=== PATIENT | female | born 2000 | race Caucasian/White ===

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

== ENCOUNTER 2018-02-17 09:14 | Emergency (ER) | payer SELFPAY ==
[2018-02-17 09:31] VITALS: BP 121/81; PULSE 96; TEMP 98.3; BMI 27.4
--- NOTE | 2018-02-17 09:31 | PDOC ---
History of Present Illness - General Chief Complaint: Rash Stated Complaint: FINE PIMPLE LIKE RASH TO HANDS FEET AND THIGHES Time Seen by Provider: 02/17/18 09:25 History Source: Patient Exam Limitations: No Limitations - History of Present Illness Initial Comments: 02/17/18 09:26 Ariel is an otherwise healthy 17-year-old female presented to emergency department due to rash. Rash began several days ago. She noticed this erythematous lesions on the mons pubis. No fever, no chills. No drainage. No pustular or vesicular lesions. No fevers no chills. No recent international travel, or travel to the [place]. Patient is sexually active with her boyfriend, denies sexually transmitted disease. Patient denies flaking of thirst of her skin. Denies oral lesions. No prior episodes like this. No history of eczema. No Recent antibiotic use No arthropod bites No new foods, detergent, lotion, soap 02/17/18 09:31 PMH: asthma PSH: denies Meds: denies ALL: NKDA Social: Denies drug use FH: non contributory GENERAL/CONSTITUTIONAL: No: fever, chills, weakness, loss of appetite. HEAD, EYES, EARS, NOSE AND THROAT: No: change in vision, ear pain, discharge, sore throat, throat swelling. CARDIOVASCULAR: No: chest pain, lightheadedness, palpitations, syncope RESPIRATORY: No: cough, shortness of breath, wheezing, hemoptysis, stridor. GASTROINTESTINAL: No: nausea, vomiting, diarrhea, abdominal cramping, rectal bleeding, constipation. GENITOURINARY: No: dysuria, hematuria, frequency, urgency, flank pain. MUSCULOSKELETAL: No: back pain, neck pain, joint pain, muscle swelling or pain SKIN: Yes: rash No: lesions, pallor, rash or easy bruising. NEUROLOGIC: No: headache, vertigo, paresthesias, weakness ENDOCRINE: No: unexplained weight gain or loss HEMATOLOGIC/LYMPHATIC: No: anemia, easy bleeding, swelling nodes. GENERAL: The patient is in no acute distress. HEAD: Normal with no signs of trauma. EYES: PERRLA, EOMI, sclera anicteric, conjunctiva clear. ENT: No oral lesions Moist mucous membranes. NECK: Normal range of motion, supple LUNGS: Breath sounds equal, clear to auscultation bilaterally. No wheezes HEART:Regular rate and rhythm, normal S1 and S2 without murmur, rub or gallop. ABDOMEN: Soft, nontender, normoactive bowel sounds. No guarding, no rebound. No masses palpable. EXTREMITIES: Normal range of motion NEUROLOGICAL: Cranial nerves II through XII grossly intact. Normal speech. No focal neurological deficits. MUSCULOSKELETAL: Back non-tender to palpation SKIN: groin crease and mons pubis, erythematous flat lesions, no pustules, no vesicles, skin dry Left hand - hypothenar eminence 2 flesh clored lesions, macular, no pustular lesions no vesicles One lesion on proximal medial ankle No signs of cellulitis 02/17/18 09:52 Past History - Past Medical History Allergies/Adverse Reactions: Allergies Allergy/AdvReac Type Severity Reaction Status Date / Time No Known Allergies Allergy Verified 02/17/18 09:20 Home Medications: Ambulatory Orders Albuterol Sulfate Inhaler - [Ventolin Hfa *Inhaler*] 1 - 2 inh IH PRN PRN Hydrocortisone 1% Ointment [Hytone 1% Ointment -] 1 applic TP BID PRN #1 tube Asthma: Yes COPD: No - Immunization History Immunization Up to Date: Yes - Suicide/Smoking/Psychosocial Hx Smoking Status: No Smoking History: Never smoked Have you smoked in the past 12 months: No Number of Cigarettes Smoked Daily: 0 Hx Alcohol Use: No Drug/Substance Use Hx: No Substance Use Type: None Medical Decision Making - Medical Decision Making 02/17/18 09:42 Rash noted on side of hand, one lesion of the ankle DD includes : psoriasis, tinea pedis/cruris/corporis/capitis, parapsoriasis/ mycosis fungoides, pityriasis rosea, secondary syphilis I do not believe this represents 2nd sypohillis as pt has similar rash in the creases of the groin No systemic signs of illness No fevers or chills No oral lesions No recent abx use Pt born and immunized in this county Will give steroid/antifungal cream Will ask pt to follow up with Derm Return to the ER for any other concerns or complaints 02/19/18 11:34 *DC/Admit/Observation/Transfer Diagnosis at time of Disposition: Rash and nonspecific skin eruption - Discharge Dispostion Disposition: HOME Condition at time of disposition: Stable Decision to Admit order: No - Prescriptions Prescriptions: Hydrocortisone 1% Ointment [Hytone 1% Ointment -] 1 applic TP BID PRN #1 tube PRN Reason: rash - Referrals Referrals: Cara Robertson MD [Staff Physician] - Marlene Scruggs [Staff Physician] - - Patient Instructions Printed Discharge Instructions: DI for Rash Additional Instructions: Alyson Thank you for coming in to the ER today Please closely monitor this rash for spreading You need to follow up with a commercial electrician (call the commercial electrician listed in your discharge paperwork) Please monitor for systemic signs of illness Try applying steroid cream to see if this helps Return to the ER for any other concerns or complaints - Post Discharge Activity
== END 2018-02-17 10:11 | disposition home or self-care (01) ==
LOC: FER 09:14
DX: R21 Rash and other nonspecific skin eruption (principal); J45.909 Unspecified asthma, uncomplicated
CPT/HCPCS: 99281-25

== ENCOUNTER 2021-07-21 03:02 | Emergency (ER) | payer OTHER ==
[2021-07-21 03:08] VITALS: BP 111/67; PULSE 110; TEMP 99.3; BMI 27.7
[2021-07-21] MEDS ORDERED: DEXAMETHASONE 4 MG TABLET (FP) PO ONE (03:13)
[2021-07-21] MEDS ORDERED: DEXAMETHASONE 4 MG TABLET (FP) ONE (03:21)
[2021-07-21] MEDS ORDERED: AZITHROMYCIN 250 MG TABLET PO ONE (03:43)
[2021-07-21] MEDS ORDERED: ACETAMINOPHEN 325 MG TABLET (FP) PO ONE (03:43)
[2021-07-21] MEDS ORDERED: ACETAMINOPHEN 325 MG TABLET (FP) ONE (03:52)
[2021-07-21] MEDS ORDERED: AZITHROMYCIN 250 MG TABLET ONE (03:52)
== END 2021-07-21 04:23 | disposition home or self-care (01) ==
LOC: FER 03:02
DX: J40 Bronchitis, not specified as acute or chronic (principal); J18.9 Pneumonia, unspecified organism
CPT/HCPCS: 71046-TC-FY; 99283-25; C9803; U0003; U0005

== ENCOUNTER 2023-11-26 16:25 | Emergency (ER) | payer BC, OTHER ==
[2023-11-26 16:57] VITALS: BP 131/80; TEMP 98.9; BMI 33.6
[2023-11-26 17:26] LABS: HCG,QUALITATIVE URINE Positive
[2023-11-26 17:33] LABS: EPITHELIAL CELLS 0-5 /hpf
[2023-11-26 18:00] LABS: HEMATOCRIT 37.4 % (32.4-45.2); HEMOGLOBIN 12.7 G/dL (10.7-15.3); MCH 27.9 pg (25.7-33.7); MEAN CELL VOLUME 81.9 fl (80-96); MEAN PLT VOLUME 8.5 fl (7.5-11.1); PLATELET COUNT 164.3 10^3/uL (134-434); RBC 4.57 10^6/uL (3.60-5.2); RDW 15.6 % (11.6-15.6); WHITE BLOOD COUNT 6.1 10^3/uL (4.0-10.8)
[2023-11-26 18:13] LABS: PLATELET ESTIMATE ADEQUATE
[2023-11-26 18:15] LABS: INR 0.91 (0.83-1.09); PROTHROMBIN TIME (PATIENT) 10.6 SEC (9.7-13.0)
[2023-11-26 18:35] LABS: ALBUMIN 4.1 g/dl (3.4-5.0); ALK PHOS 52 U/L (45-117); ANION GAP 11 mmol/L (4-13); BILIRUBIN,TOTAL 0.4 mg/dl (0.2-1); CHLORIDE 104 mmol/L (98-107); CO2 22 mmol/L (21-32); CREATININE 0.4 mg/dl (0.6-1.3); GLUCOSE,RANDOM 87 mg/dl (74-106); POTASSIUM 3.9 mmol/L (3.5-5.1); SGOT/AST 21 U/L (15-37); SGPT/ALT 21 U/L (7-52); SODIUM 137 mmol/L (136-145); TOT PROT 6.9 g/dl (6.4-8.2)
[2023-11-26 19:16] VITALS: PULSE 90; RESP 18
[2023-11-26 19:17] LABS: N-TERMINAL BNP 26.2 pg/ml (5-125)
== END 2023-11-26 23:03 | disposition home or self-care (01) ==
LOC: FER 16:25
DX: O99.891 Other specified diseases and conditions complicating pregnancy (principal); R00.0 Tachycardia, unspecified; R07.89 Other chest pain; R06.02 Shortness of breath; R05.9 Cough, unspecified; Z3A.21 21 weeks gestation of pregnancy
CPT/HCPCS: 36415; 71275-TC; 80053; 81003; 81015; 83880; 84484; 84703; 85025; 85379; 85610; 85730; 87086; 93005; 99285-25; Q9967